=== PATIENT | male | born 1990 | race Caucasian/White ===

== ENCOUNTER 2019-03-09 13:06 | Emergency (ER) | payer SELFPAY ==
--- NOTE | 2019-03-09 14:09 | ER Document Report ---
ED Medical Screen (RME) - General Chief Complaint: Chest Pain Stated Complaint: CHEST PAIN Time Seen by Provider: 03/09/19 14:01 Notes: Patient is a 28-year-old male who presents the emergency department with a chief complaint of chest pain. Patient reports he was driving his work vehicle about 2 to 3 hours ago when he had sudden onset of midsternal chest pain. Patient reports this is intermittent and when this is present it is worse with cough and deep breath. Patient denies recent fever, cough. Patient reports he does not smoke, drink alcohol or do any recreational drugs. Patient does not have any cardiac history. - Related Data Allergies/Adverse Reactions: No Known Allergies Allergy (Verified 03/09/19 13:57) Past Medical History - Social History Chew tobacco use (# tins/day): No Frequency of alcohol use: None Drug Abuse: None Physical Exam - Vital signs Vitals: Temp Pulse Resp BP Pulse Ox 97.9 F 63 16 130/75 H 100 03/09/19 13:22 03/09/19 13:22 03/09/19 13:22 03/09/19 13:22 03/09/19 13:22 - Cardiovascular Rhythm: Regular Heart sounds: Normal auscultation, S1 appreciated, S2 appreciated Course - Re-evaluation Re-evalutation: 03/09/19 14:08 I have greeted and performed a rapid initial assessment of this patient. A comprehensive ED assessment and evaluation of the patient, analysis of test results and completion of the medical decision making process will be conducted by additional ED providers. - Vital Signs Vital signs: Temp Pulse Resp BP Pulse Ox 97.9 F 63 16 130/75 H 100 03/09/19 13:22 03/09/19 13:22 03/09/19 13:22 03/09/19 13:22 03/09/19 13:22
[2019-03-09 14:36] LABS: ABSOLUTE EOSINOPHILS # (AUTO) 0.1 10^3/uL (0.0-0.6); ABSOLUTE LYMPHOCYTES (AUTO) 1.8 10^3/uL (0.5-4.7); ABSOLUTE MONOCYTES (AUTO) 0.5 10^3/uL (0.1-1.4); ABSOLUTE NEUT (AUTO) 3.5 10^3/uL (1.7-8.2); BASOPHILS % (AUTO) 0.2 % (0-2); EOSINOPHILS % (AUTO) 1.5 % (0-6); HEMATOCRIT 44.6 % (37.9-51.0); HEMOGLOBIN 15.8 g/dL (13.5-17.0); LYMPHOCYTES % (AUTO) 30.4 % (13-45); MEAN CORPUSCULAR HEMOGLOBIN 30.2 pg (27.0-33.4); MEAN CORPUSCULAR HGB CONC 35.3 g/dL (32.0-36.0); MEAN CORPUSCULAR VOLUME 86 fl (80-97); MONOCYTES % (AUTO) 9.1 % (3-13); PLATELET COUNT 239 10^3/uL (150-450); RED BLOOD COUNT 5.21 10^6/uL (4.35-5.55); RED CELL DISTRIBUTION WIDTH 13.1 % (11.5-14.0); SEGMENTED NEUTROPHILS % (AUTO) 58.8 % (42-78); TOTAL CELLS COUNTED % (AUTO) 100 %; WHITE BLOOD COUNT 5.9 10^3/uL (4.0-10.5)
--- NOTE | 2019-03-09 14:37 | RADIOLOGY REPORT (SQ) ---
EXAM DESCRIPTION: CHEST 2 VIEWS COMPLETED DATE/TIME: 03/09/2019 2:24 pm REASON FOR STUDY: chest pain COMPARISON: None. EXAM PARAMETERS: NUMBER OF VIEWS: two views TECHNIQUE: Digital Frontal and Lateral radiographic views of the chest acquired. RADIATION DOSE: NA LIMITATIONS: none FINDINGS: LUNGS AND PLEURA: No opacities, masses or pneumothorax. No pleural effusion. MEDIASTINUM AND HILAR STRUCTURES: No masses or contour abnormalities. HEART AND VASCULAR STRUCTURES: Heart normal size. No evidence for failure. BONES: No acute findings. HARDWARE: None in the chest. OTHER: No other significant finding. IMPRESSION: NO ACUTE RADIOGRAPHIC FINDING IN THE CHEST. TECHNICAL DOCUMENTATION: JOB ID: [id number] [employer]- All Rights Reserved Reading location - IP/workstation name: [email or web address]
[2019-03-09 14:57] LABS: ALBUMIN 4.5 g/dL (3.5-5.0); ALKALINE PHOSPHATASE 64 U/L (38-126); ANION GAP 10 (5-19); ASPARTATE AMINO TRANSFERASE 22 U/L (17-59); BILIRUBIN,DIRECT 0.1 mg/dL (0.0-0.4); BILIRUBIN,TOTAL 0.9 mg/dL (0.2-1.3); BLOOD UREA NITROGEN 14 mg/dL (7-20); CALCIUM 9.9 mg/dL (8.4-10.2); CARBON DIOXIDE 29 mmol/L (22-30); CHLORIDE 104 mmol/L (98-107); GLUCOSE 78 mg/dL (75-110); POTASSIUM 4.2 mmol/L (3.6-5.0); TOTAL PROTEIN 7.6 g/dL (6.3-8.2)
--- NOTE | 2019-03-09 14:58 | EKG REPORT ---
SEVERITY:- OTHERWISE NORMAL ECG - SINUS RHYTHM ATRIAL PREMATURE COMPLEX : Confirmed by: Harvey Whyte MD 09-Mar-2019 14:58:10
[2019-03-09] MEDS ORDERED: METOCLOPRAMIDE HCL ORAL SOLN 10 MG/10 ML UDCUP PO ONE (17:47)
[2019-03-09] MEDS ORDERED: MAG HYDROX/AL HYDROX/SIMETH SUSP 30 ML UDCUP PO ONE (17:47)
[2019-03-09] MEDS ORDERED: LIDOCAINE 2% VISCOUS SOLN 15 ML UDCUP PO ONE (17:47)
--- NOTE | 2019-03-09 17:55 | ER Document Report ---
ED General - General Chief Complaint: Chest Pain Stated Complaint: CHEST PAIN Time Seen by Provider: 03/09/19 14:01 Mode of Arrival: Ambulatory Information source: Patient Notes: 28-year-old male with no previous history of relatively healthy presents emergency department with reports of midsternal chest pain. Reports he works for [employer]. 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 He did go to work today he did go under house at around 9:00 coughed. Reports that around noon he was driving and experienced some midsternal chest pain. He reports it was sharp. Reports the pain comes and goes. Reports it hurts more when he turns his chest a certain way, coughs or even when he swallows. Denies nausea vomiting diarrhea. Denies trauma. He denies shortness of breath. He reports it did not make him feel dizzy. He reports he does not smoke drink or do drugs. Denies past medical history of cardiac disease. Denies family history of cardiac disease. Patient is laughing reports he feels fine right now. Patient denies history of heartburn. Reports he ate [place] food for breakfast. TRAVEL OUTSIDE OF THE [place] IN LAST 30 DAYS: No - HPI Onset: This afternoon Onset/Duration: Sudden Quality of pain: Sharp Associated symptoms: denies: Nausea, Vomiting, Shortness of breath - Related Data Allergies/Adverse Reactions: No Known Allergies Allergy (Verified 03/09/19 13:57) Past Medical History - General Information source: Patient - Social History Smoking Status: Never Smoker Chew tobacco use (# tins/day): No Frequency of alcohol use: None Drug Abuse: None Occupation: [employer] Lives with: Family Family History: DM, Other - Fibromyalgia Patient has suicidal ideation: No Patient has homicidal ideation: No - Medical History Medical History: Negative Surgical Hx: Negative Review of Systems - Review of Systems Notes: Review HPI for review of systems., All other systems negative Physical Exam - Vital signs Vitals: Temp Pulse Resp BP Pulse Ox 97.9 F 63 16 130/75 H 100 03/09/19 13:22 03/09/19 13:22 03/09/19 13:22 03/09/19 13:22 03/09/19 13:22 - Notes Notes: PHYSICAL EXAMINATION: GENERAL: Well-appearing and in no acute distress laughing, happy HEAD: Atraumatic, normocephalic. EYES: extraocular movements intact, sclera anicteric, conjunctiva are normal. ENT: nares patent, oropharynx clear without exudates. Moist mucous membranes. NECK: Normal range of motion, supple without lymphadenopathy LUNGS: CTAB and equal. No wheezes rales or rhonchi. HEART: Regular rate and rhythm without murmurs , nontender ABDOMEN: Soft, no tenderness. No guarding, no rebound BACK: Denies pain EXTREMITIES: Normal range of motion, NEUROLOGICAL: Cranial nerves grossly intact. Normal sensory/motor exams. PSYCH: Normal mood, normal affect. SKIN: Warm, Dry, normal turgor, no rashes or lesions noted - General General appearance: Appears well, Alert In distress: None Course - Re-evaluation Re-evalutation: 03/09/19 18:20 28-year-old male presents with complaints of midsternal chest pain that comes and goes since this afternoon. Denies history of cardiac disease. Patient does not smoke drink or do drugs. Denies fever vomiting diarrhea. He was given a GI cocktail reports it did not make a difference. He reports no pain at this time laughing happy no distress. Labs unremarkable patient is at low risk for cardiac event. Patient was instructed on all results. Instructed on the impo rtance of follow-up with a primary care provider for evaluation and referral to cardiology as indicated. EKG is reviewed and interpreted by me. EKG shows sinus rhythm with a rate of [address] segment elevation or depression. No ischemic T wave inversions. MT interval, QRS duration, QT intervals are within normal range. No old EKG available for comparison. The patient has atypical chest pain. The patient's chest pain is not suggestive of pulmonary embolus, cardiac ischemia, aortic dissection or other serious etiology. Given the extremely low risk for these diagnosis, further testing and evaluation for these possibilities does not appear to be indicated at this time. The patient has been instructed to return if the symptoms worsen or change in any way. Chest X-Ray 03/09/19 14:06 IMPRESSION: NO ACUTE RADIOGRAPHIC FINDING IN THE CHEST. Laboratory 03/09/19 03/09/19 03/09/19 14:13 14:13 14:13 WBC 5.9 RBC 5.21 Hgb 15.8 Hct 44.6 MCV 86 MCH 30.2 MCHC 35.3 RDW 13.1 Plt Count 239 Lymph % (Auto) 30.4 [place] % (Auto) 9.1 Eos % (Auto) 1.5 Baso % (Auto) 0.2 Absolute Neuts (auto) 3.5 Absolute Lymphs (auto) 1.8 Absolute Monos (auto) 0.5 Absolute Eos (auto) 0.1 Absolute Basos (auto) 0.0 Seg Neutrophils % 58.8 Sodium 142.6 Potassium 4.2 Chloride 104 Carbon Dioxide 29 Anion Gap 10 BUN 14 Creatinine 1.00 Est GFR ( Amer) > 60 Est GFR (MDRD) Non-Af > 60 Glucose 78 Calcium 9.9 Total Bilirubin 0.9 Direct Bilirubin 0.1 Neonat Total Bilirubin Not Reportable Neonat Direct Bilirubin Not Reportable Neonat Indirect Bili Not Reportable AST 22 ALT 17 Alkaline Phosphatase 64 Troponin I < 0.012 Total Protein 7.6 Albumin 4.5 03/09/19 18:23 - Vital Signs Vital signs: Temp Pulse Resp BP Pulse Ox 97.9 F 63 16 130/75 H 100 03/09/19 13:22 03/09/19 13:22 03/09/19 13:22 03/09/19 13:22 03/09/19 13:22 - Laboratory Result Diagrams: 03/09/19 14:13 03/09/19 14:13 - Diagnostic Test Radiology reviewed: Image reviewed, Reports reviewed Discharge - Discharge Clinical Impression: Chest pain Qualifiers: Chest pain type: unspecified Qualified Code(s): R07.9 - Chest pain, unspecified Condition: Stable Disposition: HOME, SELF-CARE Instructions: Chest Pain of Unclear Cause ([facility]) Additional Instructions: *You have been evaluated for chest pain *Follow up with a primary care provider within one week for evaluation and referral to cardiology as indicated *Return to ED for worsening condition, changes, needs, return of chest pain * Forms: Return to Work
[2019-03-09 18:27] VITALS: BP 132/72
== END 2019-03-09 18:28 | disposition home or self-care (01) ==
LOC: ER 13:06
DX: R07.9 Chest pain, unspecified (principal)
CPT/HCPCS: 93005; 99285; 36415; 85025; 80053; 84484; 71046; 93010; J3490

== ENCOUNTER 2019-09-26 00:14 | Emergency (ER) | payer OTHER ==
[2019-09-26] MEDS ORDERED: METHYLPREDNISOLONE INJ 40 MG/1 ML SDV IV ONE (01:01)
[2019-09-26] MEDS ORDERED: CETIRIZINE 10 MG TABLET PO ONE (01:01)
[2019-09-26] MEDS ORDERED: CEFTRIAXONE 1 GM/D5W RTU 1 GM/50 ML RTUPB IV ONE (01:02)
--- NOTE | 2019-09-26 01:06 | ER Document Report ---
ED Medical Screen (RME) - General Chief Complaint: Rash Stated Complaint: RASH ON ARMS AND STOMACH Time Seen by Provider: 09/26/19 00:57 Mode of Arrival: Ambulatory Information source: Patient Notes: HPI; 29-year-old male presents to the emergency room complaining of a worsening rash to his right forearm, right upper arm left forearm, and right side of abdomen for the past 3 days. No contact. States is itchy. Has been trying calamine lotion without relief. States started draining a moderate amount of yellow pus today. Denies any fevers. 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 PE: Alert and oriented x3. Mild distress noted. Right forearm and right upper arm with multiple areas of erythema are crusted yellow. They are warm and tender to palpation. Right side of abdomen with erythematous blistering rash that is warm to touch. Left forearm with blistered rash that is warm to touch. With no active discharge or draining noted. Lungs: Clear to auscultation without rales, rhonchi, wheezes. Heart: Regular rate rhythm without murmurs, rubs, gallops. I have greeted and performed a rapid initial assessment of this patient. A comprehensive ED assessment and evaluation of the patient, analysis of test results and completion of the medical decision making process will be conducted by additional ED providers. I have specifically instructed the patient or family members with the patient to immediately return to any nursing staff should anything change in the patient's condition or with their chief complaint. TRAVEL OUTSIDE OF THE [place] IN LAST 30 DAYS: No - Related Data Allergies/Adverse Reactions: No Known Allergies Allergy (Verified 03/09/19 13:57) Physical Exam - Vital signs Vitals: Temp Pulse Resp BP Pulse Ox 97.8 F 65 20 121/84 98 09/26/19 00:09/26/19 00:09/26/19 00:19 09/26/19 00:09/26/19 00:19 Course - Vital Signs Vital signs: Temp Pulse Resp BP Pulse Ox 97.8 F 65 20 121/84 98 09/26/19 00:19 09/26/19 00:19 09/26/19 00:19 09/26/19 00:19 09/26/19 00:19
[2019-09-26 01:32] LABS: ABSOLUTE EOSINOPHILS # (AUTO) 0.5 10^3/uL (0.0-0.6); ABSOLUTE LYMPHOCYTES (AUTO) 2.7 10^3/uL (0.5-4.7); ABSOLUTE MONOCYTES (AUTO) 0.7 10^3/uL (0.1-1.4); ABSOLUTE NEUT (AUTO) 3.9 10^3/uL (1.7-8.2); BASOPHILS % (AUTO) 0.2 % (0-2); HEMATOCRIT 43.1 % (37.9-51.0); HEMOGLOBIN 15.2 g/dL (13.5-17.0); LYMPHOCYTES % (AUTO) 34.7 % (13-45); MEAN CORPUSCULAR HEMOGLOBIN 30.5 pg (27.0-33.4); MEAN CORPUSCULAR HGB CONC 35.2 g/dL (32.0-36.0); MEAN CORPUSCULAR VOLUME 87 fl (80-97); MONOCYTES % (AUTO) 8.5 % (3-13); PLATELET COUNT 222 10^3/uL (150-450); RED BLOOD COUNT 4.97 10^6/uL (4.35-5.55); RED CELL DISTRIBUTION WIDTH 13.3 % (11.5-14.0); SEGMENTED NEUTROPHILS % (AUTO) 50.6 % (42-78); TOTAL CELLS COUNTED % (AUTO) 100 %; WHITE BLOOD COUNT 7.7 10^3/uL (4.0-10.5)
[2019-09-26 01:40] LABS: ALBUMIN 4.4 g/dL (3.5-5.0); ALKALINE PHOSPHATASE 54 U/L (38-126); ANION GAP 6 (5-19); ASPARTATE AMINO TRANSFERASE 23 U/L (17-59); BILIRUBIN,TOTAL 1.5 mg/dL (0.2-1.3); BLOOD UREA NITROGEN 19 mg/dL (7-20); CALCIUM 9.5 mg/dL (8.4-10.2); CARBON DIOXIDE 28 mmol/L (22-30); CHLORIDE 106 mmol/L (98-107); GLUCOSE 89 mg/dL (75-110); POTASSIUM 3.9 mmol/L (3.6-5.0); TOTAL PROTEIN 7.1 g/dL (6.3-8.2)
--- NOTE | 2019-09-26 03:59 | ER Document Report ---
ED Skin Rash/Insect Bite/Abscs - General Chief Complaint: Wound Infection Stated Complaint: RASH ON ARMS AND STOMACH Time Seen by Provider: 09/26/19 00:57 Mode of Arrival: Ambulatory Notes: Patient is a 21-year-old male who comes emergency department for chief complaint of worsening rash for the past 3 days. He states he was exposed outdoors to plants, he thinks he has either poison oak or poison gina, he has had this in the past but not recently. He reports a worsening rash along his right forearm, extending up to the arm, and slightly on the left wrist. He states the rash is very itchy and there is some clear fluid drainage along with some crusting around the areas especially on the right forearm. He denies any swelling of the arm, fever/chills, nausea/vomiting, or any other complaints. Tetanus reportedly up-to-date. He denies any past medical history. TRAVEL OUTSIDE OF THE [place] IN LAST 30 DAYS: No - Related Data Allergies/Adverse Reactions: No Known Allergies Allergy (Verified 03/09/19 13:57) Past Medical History - General Information source: Patient - Social History Smoking Status: Never Smoker Frequency of alcohol use: None Drug Abuse: None Lives with: Family Family History: DM, Other - Fibromyalgia Patient has homicidal ideation: No - Immunizations Immunizations up to date: Yes Hx Diphtheria, Pertussis, Tetanus Vaccination: Yes Review of Systems - Review of Systems Constitutional: No symptoms reported EENT: No symptoms reported Cardiovascular: No symptoms reported Respiratory: No symptoms reported Gastrointestinal: No symptoms reported Genitourinary: No symptoms reported Male Genitourinary: No symptoms reported Musculoskeletal: No symptoms reported Skin: See HPI Hematologic/Lymphatic: No symptoms reported Neurological/Psychological: No symptoms reported Physical Exam - Vital signs Vitals: Temp Pulse Resp BP Pulse Ox 97.8 F 65 20 121/84 98 09/26/19 00:19 09/26/19 00:19 09/26/19 00:19 09/26/19 00:09/26/19 00:19 - Notes Notes: GENERAL: Alert, interacts well. No acute distress. HEAD: Normocephalic, atraumatic. EYES: Pupils equal, round, and reactive to light. Extraocular movements intact. ENT: Oral mucosa moist, tongue midline. Oropharynx unremarkable. Airway patent. NECK: Full range of motion. Supple. Trachea midline. No lymphadenopathy. LUNGS: Clear to auscultation bilaterally, no wheezes, rales, or rhonchi. No respiratory distress. Non-tender chest wall. HEART: Regular rate and rhythm. No murmur ABDOMEN: Soft, non-tender. Non-distended. EXTREMITIES: Moves all 4 extremities spontaneously. No edema, normal radial and dorsalis pedis pulses bilaterally. No cyanosis. BACK: no cervical, thoracic, lumbar midline tenderness. No saddle anesthesia, normal distal neurovascular exam. Moves all extremities in full range of motion. NEUROLOGICAL: Alert and oriented x3. Normal speech. Cranial nerves II through XII grossly intact. Strength 5/5 in all extremities. PSYCH: Normal affect, normal mood. SKIN: Scattered patches of erythema and grouped vesicles along the right forearm and extending up towards the right elbow. There is a tiny patch of the same over the left wrist. There are areas around these clusters which are crusted in appearance suggesting impetigo. There is no significant spreading erythema otherwise, no streaking, no induration or fluctuance, no swelling of the forearm or elbow. Full range of motion of all extremities and joints. Course - Re-evaluation Re-evalutation: I do not see any cellulitis although there is an appearance of crusting around the contact dermatitis which is suggestive of impetigo/strep. No evidence of abscess on my evaluation. No evidence of necrotizing fasciitis. Patient is alert and well-appearing. Unremarkable vital signs. No past medical history of risk factors reported. Patient will be treated for both poison gina and impetigo, I discussed care, follow-up, and return precautions in detail. Patient states appreciation and agreement. - Vital Signs Vital signs: Temp Pulse Resp BP Pulse Ox 97.4 F 61 16 116/80 98 09/26/19 04:00 09/26/19 04:00 09/26/19 04:00 09/26/19 04:00 09/26/19 04:00 - Laboratory Result Diagrams: 09/26/19 01:15 09/26/19 01:15 Laboratory results interpreted by me: 09/26/19 09/26/19 01:15 02:55 Lactic Acid 0.6 L Total Bilirubin 1.5 H Discharge - Discharge Clinical Impression: Skin rash Contact dermatitis Qualifiers: Contact dermatitis type: unspecified Contact dermatitis trigger: non-food plants Qualified Code(s): L25.5 - Unspecified contact dermatitis due to plants, except food Condition: Stable Disposition: HOME, SELF-CARE Additional Instructions: Your exam is consistent with contact dermatitis, probably from poison oak or poison gina. There is also possible secondary bacterial infection called impetigo. Take the antibiotics as prescribed, take the steroids as prescribed. Clean the area gently with soap and water, dab dry. You may need a dressing over the area for protection. Avoid scratching. Follow-up with primary care. Return if you worsen including spreading redness, swelling, severe worsening pain, fever, or any other concerning or worsening symptoms. Prescriptions: Prednisone [Deltasone 20 mg Tablet] 20 mg PO DAILY 21 Days #42 tablet Cephalexin Monohydrate [Keflex 500 mg Capsule] 500 mg PO QID #28 capsule Forms: Return to Work
[2019-09-26 05:02] VITALS: BP 116/80
== END 2019-09-26 04:00 | disposition home or self-care (01) ==
LOC: ER 00:14
DX: L25.5 Unspecified contact dermatitis due to plants, except food (principal); R21 Rash and other nonspecific skin eruption
CPT/HCPCS: 99284; 96375; 96365; 36415; 83605; 85025; 80053; J2920; J0696